=== PATIENT | male | born 1945 | race Caucasian/White ===

== ENCOUNTER 2017-11-27 07:10 | Outpatient (CLI) | payer OTHER ==
[~2017-11-27 07:10] MED LIST: ALDACTONE25 MG; ASA81 MG; ATORVASTATIN CA20 MG; CARVEDILOL12.5 MG; CIPRO500 MG PO; COZAAR100 MG; DIGOXIN0.125 MG/2; FENOFIBRATE150 MG; FLAGYL500MG PO; FUROSEMIDE20 MG; PLAVIX75 MG
== END 2017-11-27 07:14 | disposition home or self-care (01) ==
LOC: LAB 07:10
DX: D55.0 Anemia due to glucose-6-phosphate dehydrogenase [G6PD] deficiency (principal)

== ENCOUNTER → 2018-02-20 | Outpatient (CLI) | payer OTHER | END | disposition home or self-care (01) | LOC: TOM 07:45 | DX: C34.11 Malignant neoplasm of upper lobe, right bronchus or lung (principal); C78.2 Secondary malignant neoplasm of pleura; J91.0 Malignant pleural effusion | CPT/HCPCS: 71260; Q9965 ==

== ENCOUNTER 2018-07-25 08:37 | Outpatient (CLI) | payer OTHER | END 2018-07-25 10:32 | disposition home or self-care (01) | LOC: NUCLEAR 08:37 | DX: C34.11 Malignant neoplasm of upper lobe, right bronchus or lung (principal); C78.2 Secondary malignant neoplasm of pleura | CPT/HCPCS: 78815; A9552 ==

== ENCOUNTER 2018-11-10 07:29 | Outpatient (CLI) | payer OTHER | END 2018-11-10 07:39 | disposition home or self-care (01) | LOC: TOM 07:29 | DX: C18.7 Malignant neoplasm of sigmoid colon (principal); C34.11 Malignant neoplasm of upper lobe, right bronchus or lung | CPT/HCPCS: 74177; Q9965 ==

== ENCOUNTER 2018-11-26 08:48 | Outpatient (CLI) | payer OTHER | END 2018-11-26 08:55 | disposition home or self-care (01) | LOC: NUCLEAR 08:48 | DX: I20.1 Angina pectoris with documented spasm (principal) ==

== ENCOUNTER 2018-11-26 10:10 | Outpatient (CLI) | payer OTHER | END 2018-11-26 10:35 | disposition home or self-care (01) | LOC: RAD 10:10 | DX: C18.7 Malignant neoplasm of sigmoid colon (principal); R59.0 Localized enlarged lymph nodes; Z01.810 Encounter for preprocedural cardiovascular examination ==

== ENCOUNTER 2018-11-27 08:51 | Outpatient (CLI) | payer OTHER | END 2018-11-27 13:32 | disposition home or self-care (01) | LOC: LAB 08:51 | DX: C18.7 Malignant neoplasm of sigmoid colon (principal); R59.0 Localized enlarged lymph nodes ==

== ENCOUNTER 2019-05-21 09:04 | Outpatient (CLI) | payer OTHER | END 2019-05-21 09:18 | disposition home or self-care (01) | LOC: RAD 09:04 | DX: Z98.41 Cataract extraction status, right eye (principal); H25.011 Cortical age-related cataract, right eye ==

== ENCOUNTER → 2019-06-18 | Outpatient (CLI) | payer OTHER | END | disposition home or self-care (01) | LOC: RAD 13:08 | DX: J43.2 Centrilobular emphysema (principal); J30.1 Allergic rhinitis due to pollen; J91.8 Pleural effusion in other conditions classified elsewhere; Z87.891 Personal history of nicotine dependence ==

== ENCOUNTER 2019-07-02 08:08 | Outpatient (CLI) | payer OTHER | END 2019-07-02 08:14 | disposition home or self-care (01) | LOC: RAD 08:08 | DX: J43.2 Centrilobular emphysema (principal); J30.1 Allergic rhinitis due to pollen; J91.8 Pleural effusion in other conditions classified elsewhere; Z87.891 Personal history of nicotine dependence ==

== ENCOUNTER → 2019-10-22 | Outpatient (CLI) | payer OTHER | END | disposition home or self-care (01) | LOC: RAD 12:46 | DX: C34.11 Malignant neoplasm of upper lobe, right bronchus or lung (principal); C78.01 Secondary malignant neoplasm of right lung; C77.1 Secondary and unspecified malignant neoplasm of intrathoracic lymph nodes; J91.0 Malignant pleural effusion ==

== ENCOUNTER 2020-03-22 08:47 | Outpatient (CLI) | payer OTHER | END 2020-03-22 08:54 | disposition home or self-care (01) | LOC: NUCLEAR 08:47 | PROVIDERS: ATTEND Internal Medicine Hematology & Oncology | DX: C34.11 Malignant neoplasm of upper lobe, right bronchus or lung (principal); C78.01 Secondary malignant neoplasm of right lung; C77.1 Secondary and unspecified malignant neoplasm of intrathoracic lymph nodes | CPT/HCPCS: 78815; A9552 ==

== ENCOUNTER → 2020-06-17 | Outpatient (CLI) | payer OTHER | END | disposition home or self-care (01) | LOC: RAD 10:05 | PROVIDERS: ATTEND Internal Medicine Hematology & Oncology | DX: C34.11 Malignant neoplasm of upper lobe, right bronchus or lung (principal); C77.2 Secondary and unspecified malignant neoplasm of intra-abdominal lymph nodes; C78.01 Secondary malignant neoplasm of right lung; C78.7 Secondary malignant neoplasm of liver and intrahepatic bile duct ==

== ENCOUNTER 2020-10-04 08:31 | Outpatient (CLI) | payer OTHER | END 2020-10-04 08:41 | disposition home or self-care (01) | LOC: NUCLEAR 08:31 | PROVIDERS: ATTEND Internal Medicine Hematology & Oncology | DX: C34.11 Malignant neoplasm of upper lobe, right bronchus or lung (principal); C77.2 Secondary and unspecified malignant neoplasm of intra-abdominal lymph nodes; C78.7 Secondary malignant neoplasm of liver and intrahepatic bile duct | CPT/HCPCS: 78816; A9552 ==

== ENCOUNTER → 2020-12-01 | Outpatient (CLI) | payer OTHER | END | disposition home or self-care (01) | LOC: MRI 09:15 | PROVIDERS: ATTEND Internal Medicine Hematology & Oncology | DX: C79.51 Secondary malignant neoplasm of bone (principal) | CPT/HCPCS: 72146 ==

== ENCOUNTER 2021-01-31 12:54 | Outpatient (CLI) | payer OTHER | END 2021-01-31 13:05 | disposition home or self-care (01) | LOC: SONOGRAMA 12:54 → MAMO-SONO 13:15 | PROVIDERS: ATTEND Internal Medicine Hematology & Oncology | DX: N64.89 Other specified disorders of breast (principal) ==

== ENCOUNTER 2021-04-07 11:47 | Outpatient (CLI) | payer OTHER | END 2021-04-07 11:54 | disposition home or self-care (01) | LOC: RAD 11:47 | DX: M54.2 Cervicalgia (principal) ==

== ENCOUNTER 2021-04-19 08:43 | Outpatient (CLI) | payer OTHER | END 2021-04-19 08:45 | disposition home or self-care (01) | LOC: NUCLEAR 08:43 | PROVIDERS: ATTEND Internal Medicine Hematology & Oncology | DX: C34.11 Malignant neoplasm of upper lobe, right bronchus or lung (principal); C77.3 Secondary and unspecified malignant neoplasm of axilla and upper limb lymph nodes; C77.2 Secondary and unspecified malignant neoplasm of intra-abdominal lymph nodes; C78.7 Secondary malignant neoplasm of liver and intrahepatic bile duct | CPT/HCPCS: 78816; A9552 ==

== ENCOUNTER 2021-09-28 13:17 | Outpatient (CLI) | payer OTHER | END 2021-09-28 13:31 | disposition home or self-care (01) | LOC: RAD 13:17 | PROVIDERS: ATTEND General Practice | DX: S60.221A Contusion of right hand, initial encounter (principal) ==

== ENCOUNTER 2021-10-04 08:32 | Outpatient (CLI) | payer OTHER | END 2021-10-04 08:39 | disposition home or self-care (01) | LOC: SONOGRAMA 08:32 | PROVIDERS: ATTEND General Practice | DX: M75.111 Incomplete rotator cuff tear or rupture of right shoulder, not specified as traumatic (principal) ==

== ENCOUNTER 2021-11-01 10:21 | Outpatient (CLI) | payer OTHER | END 2021-11-01 10:25 | disposition home or self-care (01) | LOC: RAD 10:21 | PROVIDERS: ATTEND Physical Medicine & Rehabilitation | DX: M17.11 Unilateral primary osteoarthritis, right knee (principal) ==

== ENCOUNTER 2021-11-14 07:35 | Outpatient (CLI) | payer OTHER | END 2021-11-14 07:38 | disposition home or self-care (01) | LOC: NUCLEAR 07:35 | PROVIDERS: ATTEND Internal Medicine Hematology & Oncology | DX: C34.11 Malignant neoplasm of upper lobe, right bronchus or lung (principal); C77.1 Secondary and unspecified malignant neoplasm of intrathoracic lymph nodes; C77.2 Secondary and unspecified malignant neoplasm of intra-abdominal lymph nodes | CPT/HCPCS: 78815; A9552 ==

== ENCOUNTER 2022-04-17 07:25 | Outpatient (CLI) | payer OTHER | END 2022-04-17 07:27 | disposition home or self-care (01) | LOC: NUCLEAR 07:25 | PROVIDERS: ATTEND Internal Medicine Hematology & Oncology | DX: C34.11 Malignant neoplasm of upper lobe, right bronchus or lung (principal); C78.00 Secondary malignant neoplasm of unspecified lung | CPT/HCPCS: 78812; A9552 ==

== ENCOUNTER 2022-12-17 14:32 | Outpatient (CLI) | payer OTHER | END 2022-12-17 14:38 | disposition home or self-care (01) | LOC: SONOGRAMA 14:32 | PROVIDERS: ATTEND Internal Medicine Hematology & Oncology | DX: N63.10 Unspecified lump in the right breast, unspecified quadrant (principal) ==

== ENCOUNTER 2023-01-02 14:23 | Outpatient (CLI) | payer OTHER | END 2023-01-02 14:33 | disposition home or self-care (01) | LOC: MAMO-SONO 14:23 | PROVIDERS: ATTEND Surgery | DX: N60.11 Diffuse cystic mastopathy of right breast (principal); N60.12 Diffuse cystic mastopathy of left breast ==

== ENCOUNTER 2023-03-01 09:40 | Outpatient (CLI) | payer OTHER | END 2023-03-01 09:51 | disposition home or self-care (01) | LOC: RX STUDY 09:40 | PROVIDERS: ATTEND Internal Medicine Gastroenterology | DX: R13.19 Other dysphagia (principal); Z85.118 Personal history of other malignant neoplasm of bronchus and lung ==

== ENCOUNTER 2023-04-09 07:54 | Outpatient (CLI) | payer OTHER | END 2023-04-09 07:55 | disposition home or self-care (01) | LOC: NUCLEAR 07:54 | PROVIDERS: ATTEND Internal Medicine Hematology & Oncology | DX: C34.11 Malignant neoplasm of upper lobe, right bronchus or lung (principal); C78.01 Secondary malignant neoplasm of right lung; Z85.030 Personal history of malignant carcinoid tumor of large intestine | CPT/HCPCS: 78816; A9552 ==

== ENCOUNTER 2023-08-27 09:09 | Outpatient (CLI) | payer OTHER | END 2023-08-27 09:20 | disposition home or self-care (01) | LOC: TOM 09:09 | PROVIDERS: ATTEND Internal Medicine Hematology & Oncology | DX: C77.1 Secondary and unspecified malignant neoplasm of intrathoracic lymph nodes (principal); C78.00 Secondary malignant neoplasm of unspecified lung; Z92.21 Personal history of antineoplastic chemotherapy | CPT/HCPCS: 71260; Q9965 ==

== ENCOUNTER 2023-12-19 08:31 | Outpatient (CLI) | payer OTHER | END 2023-12-19 08:34 | disposition home or self-care (01) | LOC: NUCLEAR 08:31 | PROVIDERS: ATTEND Internal Medicine Hematology & Oncology | DX: C34.11 Malignant neoplasm of upper lobe, right bronchus or lung (principal); C77.1 Secondary and unspecified malignant neoplasm of intrathoracic lymph nodes; C77.2 Secondary and unspecified malignant neoplasm of intra-abdominal lymph nodes; C78.7 Secondary malignant neoplasm of liver and intrahepatic bile duct; C79.51 Secondary malignant neoplasm of bone | CPT/HCPCS: 78816; A9552 ==

== ENCOUNTER 2023-12-31 15:00 | Emergency (ER) | payer OTHER ==
[~2023-12-31] VITALS: Ht 177.8 cm; Wt 77.1 kg
[2023-12-31 17:31] LABS: HEMATOCRIT 39.1 % (39.0-48.0); HEMOGLOBIN 13.7 g/dL (13-16.00); MEAN CELL VOLUME 93.5 fL (80.0-100.00); MEAN CORPUSCULAR HEMOGLOBIN 32.7 pg (27.00-32.0); PLATELET COUNT 285 K/uL (150-450); RED BLOOD COUNT 4.18 M/uL (4.00-6.00); RED CELL DISTRIBUTION WIDTH 14.4 % (11.5-14.5)
[2023-12-31 17:57] LABS: INR 1.04; PARTIAL THROMBOPLASTIN TIME 29.3 SECONDS (22.0-34.0); PROTHROMBIN TIME 10.9 SECONDS (9.0-11.5)
[2023-12-31 18:02] LABS: CALCIUM 9.4 mg/dL (8.5-10.1); CREATININE SERUM 1.19 mg/dL (0.70-1.30); GFR 58.82; POTASSIUM 4.91 mEq/L (3.5-5.1)
[2023-12-31] MEDS ORDERED: LORazepam 2 MG/ML VIAL IM STA (18:04)
== END 2023-12-31 22:56 | disposition home or self-care (01) ==
LOC: ER 15:00
PROVIDERS: Emergency Medicine
DX: R42 Dizziness and giddiness (principal); Z20.822 Contact with and (suspected) exposure to COVID-19; I10 Essential (primary) hypertension; E03.8 Other specified hypothyroidism
CPT/HCPCS: 36415; 71045; 93005; 93041; 94760; 96372; 99283; J3490

== ENCOUNTER 2024-01-23 10:43 | Outpatient (CLI) | payer OTHER | END 2024-01-23 10:48 | disposition home or self-care (01) | LOC: RAD 10:43 | PROVIDERS: ATTEND Internal Medicine Pulmonary Disease | DX: J43.2 Centrilobular emphysema (principal); J30.1 Allergic rhinitis due to pollen; J91.8 Pleural effusion in other conditions classified elsewhere; Z87.891 Personal history of nicotine dependence; R06.02 Shortness of breath ==

== ENCOUNTER 2024-04-22 10:34 | Outpatient (CLI) | payer OTHER ==
[~2024-04-22 10:34] MED LIST changes: +ALDACTAZIDE 251 EACH PO; +CARVEDILOL25 MG PO; +CLOPIDOGREL BIS75 MG PO; +COZAAR100 MG PO; +DIGOX125 MCG PO; +FENOFIBRATE160 MG PO; +HORIZANT300 MG PO; +HYOSCYAMINE0.125 M1 SL; +LASIX40 MG PO; +LIPITOR20 MG PO; +OXYC1TAB9 PO; +RAYOS2 MG PO; +UROXATRAL10 MG PO
== END 2024-04-22 10:36 | disposition home or self-care (01) ==
LOC: RAD 10:34
PROVIDERS: ATTEND Internal Medicine Hematology & Oncology
DX: R07.89 Other chest pain (principal)

== ENCOUNTER 2024-06-11 16:42 | Emergency (ER) | payer OTHER ==
[~2024-06-11] VITALS: Ht 172.7 cm; Wt 76.2 kg
[2024-06-11] MEDS ORDERED: FUROsemide 20 MG/2 ML VIAL ONE (18:28)
[2024-06-11] MEDS ORDERED: NITROGLYCERIN IN 5 % DEXTROSE 50 MG/250 ML BOTTLE IV ONE (18:28)
[2024-06-11] MEDS ORDERED: LORazepam 1 MG TABLET PO ONE (18:30)
[2024-06-11] MEDS ORDERED: NITROGLYCERIN IN 5 % DEXTROSE 250 ML IV SCH (18:30)
[2024-06-11] MEDS ORDERED: FUROsemide 20 MG/2 ML VIAL IV ONE (18:30)
[2024-06-11 19:05] LABS: HEMATOCRIT 37.5 % (39.0-48.0); HEMOGLOBIN 12.7 g/dL (13-16.00); MEAN CELL VOLUME 91.9 fL (80.0-100.00); MEAN CORPUSCULAR HEMOGLOBIN 31.2 pg (27.00-32.0); MEAN CORPUSCULAR HGB CONC 33.9 g/dl (32.0-36.0); PLATELET COUNT 286 K/uL (150-450); RED BLOOD COUNT 4.08 M/uL (4.00-6.00); RED CELL DISTRIBUTION WIDTH 15.9 % (11.5-14.5)
[2024-06-11 19:22] LABS: ALBUMIN 3.5 gm/dL (3.4-5.0); BILIRUBIN TOTAL 0.36 mg/dL (0.3-1.2); CALCIUM 9.3 mg/dL (8.5-10.1); CREATININE SERUM 1.1 mg/dL (0.70-1.30); GFR 64.25; GLOBULINA 3.5 G/DL (2.4-3.5); POTASSIUM 4.42 mEq/L (3.5-5.1)
[2024-06-11 19:36] LABS: PH,URINE 6.5 (5.0-8.0); URINE APPEARANCE Clear; URINE BILIRRUBIN Negative (NEGATIVE); URINE BLOOD Negative; URINE COLOR Yellow; URINE GLUCOSE Negative (NEGATIVE); URINE KETONE Negative (NEGATIVE); URINE LEUKOCYTE Negative; URINE NITRATE Negative; URINE PROTEIN Negative (NEGATIVE); URINE UROBILINOGEN 0.2 E.U./dl
[2024-06-11 19:40] LABS: URINE BACTERIA 16.3 uL (0.0-1933); URINE RBC 11.7 uL (0.0-20.8)
[2024-06-11 19:49] LABS: URINE EPITHELIAL CELLS 0.7 uL (0.0-38.8); URINE WBC 1.2 uL (0.0-23.2)
== END 2024-06-11 22:30 | disposition home or self-care (01) ==
LOC: ER 16:42
PROVIDERS: General Practice
DX: R07.9 Chest pain, unspecified (principal); I16.9 Hypertensive crisis, unspecified; I10 Essential (primary) hypertension; Z20.822 Contact with and (suspected) exposure to COVID-19
CPT/HCPCS: 36415; 71045; 93005; 93041; 96365; 96366; 99283; J1940; J3490

== ENCOUNTER 2024-07-21 14:09 | Outpatient (CLI) | payer OTHER | END 2024-07-21 14:15 | disposition home or self-care (01) | LOC: RAD 14:09 | PROVIDERS: ATTEND Internal Medicine Hematology & Oncology | DX: C34.11 Malignant neoplasm of upper lobe, right bronchus or lung (principal) ==

== ENCOUNTER 2024-07-23 11:47 | Outpatient (CLI) | payer OTHER | END 2024-07-23 11:53 | disposition home or self-care (01) | LOC: RAD 11:47 | PROVIDERS: ATTEND Physical Medicine & Rehabilitation | DX: M54.2 Cervicalgia (principal) ==

== ENCOUNTER 2024-07-29 10:24 | Emergency (ER) | payer OTHER ==
[~2024-07-29] VITALS: Ht 172.7 cm; Wt 77.1 kg
[2024-07-29] MEDS ORDERED: GRALISE600 MG PO (10:46)
[2024-07-29] MEDS ORDERED: ATIVAN0.5 M1 PO (10:47)
[2024-07-29] MEDS ORDERED: PROZAC10 MG PO (10:47)
[2024-07-29] MEDS ORDERED: 0.9 % SODIUM CHLORIDE 1,000 ML IV STA (11:59)
[2024-07-29 12:38] LABS: ABG PH 7.435 (7.35-7.45); ABG PO2 95.8 mmHg (80-100); ABG pCO2 33.6 mmHg (35-45); BASE EXCESS -1.4 mmol/l; BICARBONATE 22.1 mmol/l (23-25); SaO2 97.6 %; Tco2 23.1 mmol/l
[2024-07-29 12:51] LABS: allen test SATISFACTORY; o2 21 %; puncture site RADIAL RIGHT
[2024-07-29 12:56] LABS: HEMOGLOBIN 12.1 g/dL (13-16.00); MEAN CELL VOLUME 93.2 fL (80.0-100.00); MEAN CORPUSCULAR HEMOGLOBIN 31.4 pg (27.00-32.0); MEAN CORPUSCULAR HGB CONC 33.7 g/dl (32.0-36.0); PLATELET COUNT 235 K/uL (150-450); RED BLOOD COUNT 3.86 M/uL (4.00-6.00); RED CELL DISTRIBUTION WIDTH 16.2 % (11.5-14.5)
[2024-07-29 13:17] LABS: INR 1.02; PROTHROMBIN TIME 11.1 SECONDS (9.0-11.5)
[2024-07-29 13:19] LABS: PARTIAL THROMBOPLASTIN TIME < 20.0 SECONDS (22.0-34.0)
[2024-07-29 13:31] LABS: ALBUMIN 3.4 gm/dL (3.4-5.0); BILIRUBIN TOTAL 0.38 mg/dL (0.3-1.2); CALCIUM 9.3 mg/dL (8.5-10.1); CREATININE SERUM 1.26 mg/dL (0.70-1.30); GFR 54.93; GLOBULINA 3.7 G/DL (2.4-3.5); POTASSIUM 5.11 mEq/L (3.5-5.1); TOTAL PROTEIN 7.1 gm/dL (6.4-8.2)
[2024-07-29 14:30] LABS: PH,URINE 6.5 (5.0-8.0); URINE APPEARANCE Clear; URINE BILIRRUBIN Negative (NEGATIVE); URINE BLOOD Negative; URINE COLOR Yellow; URINE GLUCOSE Negative (NEGATIVE); URINE KETONE Negative (NEGATIVE); URINE LEUKOCYTE Negative; URINE NITRATE Negative; URINE PROTEIN Negative (NEGATIVE); URINE UROBILINOGEN 0.2 E.U./dl
[2024-07-29 14:34] LABS: URINE EPITHELIAL CELLS 3.6 uL (0.0-38.8); URINE RBC 5.4 uL (0.0-20.8)
[2024-07-29 14:38] LABS: URINE CAST 0.15 uL (0.0-1.40); URINE WBC 1.6 uL (0.0-23.2)
== END 2024-07-29 15:23 | disposition home or self-care (01) ==
LOC: ER 10:24
PROVIDERS: General Practice
DX: R07.89 Other chest pain (principal); J44.9 Chronic obstructive pulmonary disease, unspecified; F32.89 Other specified depressive episodes; Z86.2 Personal history of diseases of the blood and blood-forming organs and certain disorders involving the immune mechanism; I25.2 Old myocardial infarction; E78.00 Pure hypercholesterolemia, unspecified; I10 Essential (primary) hypertension; F41.8 Other specified anxiety disorders; C78.02 Secondary malignant neoplasm of left lung; F17.210 Nicotine dependence, cigarettes, uncomplicated
CPT/HCPCS: 36415; 71250; 82803; 96365; 99284; J7030

== ENCOUNTER 2024-08-15 12:45 | Inpatient (IN) | payer OTHER ==
[~2024-08-15] VITALS: Ht 172.7 cm; Wt 71.7 kg
[~2024-08-15 12:45] MED LIST changes: +ATIVAN0.5 M1 PO; +GRALISE600 MG PO; +PROZAC10 MG PO
--- NOTE | 2024-08-15 13:21 | NUR ---
SE RECIBE MASCULINO ALERTA Y ORIENTADO X3 EN AMBULANCIA QUIEN REFIERE DEBILIDAD Y MAREOS HACE VARIOS HALL. PACIENTE CON CA PULMON DE DR JEFF HERNANDEZ. SE MIDEN S/V Y SE REALIZA EKG EL CUAL ES EVALUADO POR DRA MENG. SE UBICA A PACIENTE.
[2024-08-15] MEDS ORDERED: 0.9 % SODIUM CHLORIDE 500 ML IV ONE (14:00)
[2024-08-15] MEDS ORDERED: MULTIVIT INFUSN,ADULT 4,VIT K 10 ML VIAL IV ONE (14:00)
--- NOTE | 2024-08-15 14:12 | NUR ---
RN EVANS EDUCA A PTE SOBRE TX A RECIBIR EN EL AREA EL MISMO REFIERE ENTENDER. SE REALIZAN MUESTRAS BAJO MEDIDAS ASEPTICAS Y SE ENVIAN. SE CAHYA EL MISMO EN ESPERA DE RESULTADOS Y DE PLACA PENDIENTE.
[2024-08-15 14:31] LABS: HEMATOCRIT 40.1 % (39.0-48.0); HEMOGLOBIN 13.5 g/dL (13-16.00); MEAN CELL VOLUME 90.6 fL (80.0-100.00); MEAN CORPUSCULAR HEMOGLOBIN 30.5 pg (27.00-32.0); MEAN CORPUSCULAR HGB CONC 33.6 g/dl (32.0-36.0); PLATELET COUNT 288 K/uL (150-450); RED BLOOD COUNT 4.42 M/uL (4.00-6.00); RED CELL DISTRIBUTION WIDTH 16.2 % (11.5-14.5)
[2024-08-15 14:56] LABS: BILIRUBIN TOTAL 0.47 mg/dL (0.3-1.2); CALCIUM 8.3 mg/dL (8.5-10.1); CREATININE SERUM 1.63 mg/dL (0.70-1.30); GFR 40.81; GLOBULINA 3.4 G/DL (2.4-3.5); POTASSIUM 5.68 mEq/L (3.5-5.1); TOTAL PROTEIN 6.4 gm/dL (6.4-8.2)
[2024-08-15 16:49] LABS: URINE APPEARANCE Clear; URINE BILIRRUBIN Negative (NEGATIVE); URINE BLOOD Negative; URINE COLOR Yellow; URINE GLUCOSE Negative (NEGATIVE); URINE KETONE Trace (NEGATIVE); URINE LEUKOCYTE Trace; URINE NITRATE Negative; URINE PROTEIN Negative (NEGATIVE); URINE UROBILINOGEN 0.2 E.U./dl
[2024-08-15 16:52] LABS: URINE BACTERIA 31.4 uL (0.0-1933); URINE EPITHELIAL CELLS 7.8 uL (0.0-38.8); URINE RBC 4.8 uL (0.0-20.8); URINE WBC 10.1 uL (0.0-23.2)
[2024-08-15 17:03] LABS: URINE CAST 0.45 uL (0.0-1.40)
[2024-08-15] MEDS ORDERED: CEFTRIAXONE SODIUM 2,000 MG VIAL IV ONE (17:45)
[2024-08-15] MEDS ORDERED: FAMOTIDINE/PF 20 MG in 0.9 % SODIUM CHLORIDE 100 ML IV SCH (18:46)
[2024-08-15] MEDS ORDERED: CEFTRIAXONE SODIUM 2,000 MG in 0.9 % SODIUM CHLORIDE 100 ML IV SCH (18:46)
[2024-08-15] MEDS ORDERED: ACETAMINOPHEN 325 MG TABLET PO PRN (19:00)
[2024-08-15] MEDS ORDERED: 0.9 % SODIUM CHLORIDE 1,000 ML IV SCH (19:00)
[2024-08-15] MEDS ORDERED: LOSARTAN POTASSIUM 100 MG TABLET PO SCH (19:07)
[2024-08-15] MEDS ORDERED: VITAMIN B COMPLEX/LYSINE 1 ML ML PO SCH (19:07)
[2024-08-15] MEDS ORDERED: CLOPIDOGREL BISULFATE 75 MG TABLET PO SCH (19:07)
[2024-08-15] MEDS ORDERED: CARVEDILOL 25 MG TABLET PO SCH (19:07)
[2024-08-15] MEDS ORDERED: SPIRONOLACTONE 25 MG TABLET PO SCH (19:08)
[2024-08-15] MEDS ORDERED: FUROsemide 20 MG TABLET PO SCH (19:08)
[2024-08-15] MEDS ORDERED: ASPIRIN 81 MG TABLET.EC PO SCH (19:08)
[2024-08-15 20:48] LABS: ABG PH 7.403 (7.35-7.45); ABG PO2 84.3 mmHg (80-100); ABG pCO2 34.6 mmHg (35-45); BASE EXCESS -2.8 mmol/l; BICARBONATE 21.1 mmol/l (23-25); SaO2 96.2 %; Tco2 22.2 mmol/l
[2024-08-15 20:57] LABS: allen test SATISFACTORY; o2 21 %; puncture site RADIAL RIGHT
[2024-08-15 21:03] LABS: INR 1.05; PARTIAL THROMBOPLASTIN TIME 24.4 SECONDS (22.0-34.0); PROTHROMBIN TIME 11.4 SECONDS (9.0-11.5)
[2024-08-15 21:05] LABS: CALCIUM 8.4 mg/dL (8.5-10.1); CREATININE SERUM 1.48 mg/dL (0.70-1.30); GFR 45.62; PHOSPHOROUS 3.6 mg/dL (2.5-4.9); POTASSIUM 5.14 mEq/L (3.5-5.1)
[2024-08-15 21:08] LABS: CKMB 2.2 NG/ML (0.5-3.6)
[2024-08-15 21:14] LABS: C-REACTIVE PROTEIN < 0.29 MG/DL (0.00-0.29)
[2024-08-15 23:27] VITALS: BP 109/69; O2SAT 98
[2024-08-16] MEDS ORDERED: ACETAMINOPHEN 500 MG GEL..CAP PO PRN (08:00)
[2024-08-16 10:16] VITALS: BP 117/70; O2SAT 97
[2024-08-16] MEDS ORDERED: ALPRAzolam 0.25 MG TABLET PO PRN (15:30)
[2024-08-16 20:39] VITALS: BP 150/89
[2024-08-16] MEDS ORDERED: TAMSULOSIN HCL 0.4 MG CAP PO SCH (21:00)
[2024-08-16] MEDS ORDERED: CLONAZEPAM 1 MG TABLET PO SCH (21:00)
[2024-08-17 00:55] VITALS: BP 78/45
[2024-08-17 01:59] VITALS: BP 80/50
[2024-08-17 08:48] VITALS: BP 180/70; BP 95/60; O2SAT 97; O2SAT 98
[2024-08-17 13:49] LABS: HEMATOCRIT 39.2 % (39.0-48.0); MEAN CELL VOLUME 93.9 fL (80.0-100.00); MEAN CORPUSCULAR HEMOGLOBIN 31.1 pg (27.00-32.0); MEAN CORPUSCULAR HGB CONC 33.1 g/dl (32.0-36.0); PLATELET COUNT 237 K/uL (150-450); RED BLOOD COUNT 4.17 M/uL (4.00-6.00); RED CELL DISTRIBUTION WIDTH 15.7 % (11.5-14.5)
[2024-08-17 14:36] LABS: ALBUMIN 2.7 gm/dL (3.4-5.0); BILIRUBIN TOTAL 0.52 mg/dL (0.3-1.2); CALCIUM 8.2 mg/dL (8.5-10.1); CREATININE SERUM 1.33 mg/dL (0.70-1.30); GFR 51.6; GLOBULINA 3.1 G/DL (2.4-3.5); POTASSIUM 5.79 mEq/L (3.5-5.1); TOTAL PROTEIN 5.8 gm/dL (6.4-8.2)
[2024-08-17] MEDS ORDERED: SODIUM POLYSTYRENE SULFONATE 15 G/4 TSP TSP PO SCH (17:00)
[2024-08-17] MEDS ORDERED: ORPHENADRINE CITRATE 100 MG TABLET PO SCH (18:50)
[2024-08-17] MEDS ORDERED: ALBUTEROL SULFATE 3 ML/2.5 MG AMPUL.NEB IH SCH (18:50)
[2024-08-17 19:52] VITALS: BP 115/70; O2SAT 98
[2024-08-18 01:15] VITALS: BP 108/63
[2024-08-18] MEDS ORDERED: FAMOtidine 20 MG TABLET PO SCH (09:00)
[2024-08-18 09:50] VITALS: BP 112/68; O2SAT 96
[2024-08-18 19:34] VITALS: BP 120/77; O2SAT 97
[2024-08-19 02:25] VITALS: BP 97/65
[2024-08-19 06:44] LABS: CALCIUM 7.9 mg/dL (8.5-10.1); CREATININE SERUM 1.07 mg/dL (0.70-1.30); GFR 66.33; POTASSIUM 4.04 mEq/L (3.5-5.1)
[2024-08-19 08:56] VITALS: BP 119/74; O2SAT 99
[2024-08-19 17:31] VITALS: BP 138/81
[2024-08-20 01:52] VITALS: BP 115/60
[2024-08-20 09:17] VITALS: BP 109/69; O2SAT 97
[2024-08-20] MEDS ORDERED: AMINO ACIDS/PROTEIN HYDROLYS 30 ML BLIST.PACK PO SCH (10:38)
[2024-08-20] MEDS ORDERED: NORFLEX100MG PO (11:52)
[2024-08-20] MEDS ORDERED: TAMS0.4C PO (11:53)
[2024-08-20] MEDS ORDERED: CLOPIDOGREL BIS75 MG PO (11:53)
[2024-08-20] MEDS ORDERED: ST. JOSEPH ASPI81 M2 PO (11:53)
[2024-08-20] MEDS ORDERED: CLONAZEPAM1 MG PO (11:54)
[2024-08-20] MEDS ORDERED: ALPRAZOLAM0.25 MG PO (11:55)
[2024-08-20] MEDS ORDERED: CIPRO500 MG PO (11:57)
== END 2024-08-20 12:26 | disposition home or self-care (01) | DRG 641 ==
LOC: ER 12:45 → MEDJ 19:15
PROVIDERS: General Practice; Nurse Practitioner Family; ADMIT Internal Medicine Hematology & Oncology; ATTEND Internal Medicine Hematology & Oncology
PROC: 3E0F7GC Introduction of Other Therapeutic Substance into Respiratory Tract, Via Natural or Artificial Opening (ICD-10-PCS; principal; 2024-08-17)
PROC: BW4GZZZ Ultrasonography of Pelvic Region (ICD-10-PCS; 2024-08-17)
PROC: BT4JZZZ Ultrasonography of Kidneys and Bladder (ICD-10-PCS; 2024-08-17)
DX: E86.0 Dehydration (principal); C34.11 Malignant neoplasm of upper lobe, right bronchus or lung; N17.8 Other acute kidney failure; R65.10 Systemic inflammatory response syndrome (SIRS) of non-infectious origin without acute organ dysfunction; N39.0 Urinary tract infection, site not specified; R78.81 Bacteremia; D72.828 Other elevated white blood cell count; J44.9 Chronic obstructive pulmonary disease, unspecified; E87.5 Hyperkalemia; I10 Essential (primary) hypertension; E78.49 Other hyperlipidemia

== ENCOUNTER 2024-09-01 11:34 | Emergency (ER) | payer OTHER ==
[~2024-09-01] VITALS: Ht 172.7 cm; Wt 71.7 kg
[~2024-09-01 11:34] MED LIST changes: +ALPRAZOLAM0.25 MG PO; +CLONAZEPAM1 MG PO; +NORFLEX100MG PO; +ST. JOSEPH ASPI81 M2 PO; +TAMS0.4C PO
[2024-09-01] MEDS ORDERED: 0.9 % SODIUM CHLORIDE 1,000 ML IV STA (12:53)
[2024-09-01 13:41] LABS: HEMATOCRIT 39.9 % (39.0-48.0); HEMOGLOBIN 13.7 g/dL (13-16.00); MEAN CELL VOLUME 90.9 fL (80.0-100.00); MEAN CORPUSCULAR HEMOGLOBIN 31.2 pg (27.00-32.0); MEAN CORPUSCULAR HGB CONC 34.3 g/dl (32.0-36.0); PLATELET COUNT 381 K/uL (150-450); RED BLOOD COUNT 4.39 M/uL (4.00-6.00); RED CELL DISTRIBUTION WIDTH 16.8 % (11.5-14.5)
[2024-09-01 14:01] LABS: ALBUMIN 3.4 gm/dL (3.4-5.0); BILIRUBIN TOTAL 0.49 mg/dL (0.3-1.2); BILIRUBIN,CONJUGATED 0.15 mg/dL (0.0-0.2); BILIRUBIN,UNCONJUGATED 0.34 mg/dL (0.0-0.6); CREATININE SERUM 1.12 mg/dL (0.70-1.30); GFR 62.92; POTASSIUM 4.68 mEq/L (3.5-5.1); TOTAL PROTEIN 6.9 gm/dL (6.4-8.2)
[2024-09-01 14:18] LABS: PH,URINE 6.5 (5.0-8.0); URINE APPEARANCE Clear; URINE BILIRRUBIN Negative (NEGATIVE); URINE BLOOD Negative; URINE COLOR Yellow; URINE GLUCOSE Negative (NEGATIVE); URINE KETONE Negative (NEGATIVE); URINE LEUKOCYTE Negative; URINE NITRATE Negative; URINE PROTEIN Trace (NEGATIVE); URINE UROBILINOGEN 0.2 E.U./dl
[2024-09-01 14:20] LABS: URINE BACTERIA 7.5 uL (0.0-1933); URINE EPITHELIAL CELLS 2.6 uL (0.0-38.8); URINE RBC 10.5 uL (0.0-20.8); URINE WBC 4.3 uL (0.0-23.2)
== END 2024-09-01 19:07 | disposition home or self-care (01) ==
LOC: ER
PROVIDERS: General Practice
DX: R53.1 Weakness (principal); C34.90 Malignant neoplasm of unspecified part of unspecified bronchus or lung; J02.9 Acute pharyngitis, unspecified
CPT/HCPCS: 36415; 93005; 96365; 96366; 99283; J7030

== ENCOUNTER 2024-12-14 10:02 | Outpatient (CLI) | payer OTHER | END 2024-12-14 10:05 | disposition home or self-care (01) | LOC: RAD 10:02 | PROVIDERS: ATTEND Internal Medicine Cardiovascular Disease | DX: I10 Essential (primary) hypertension (principal) ==

== ENCOUNTER 2025-01-14 11:13 | Inpatient (IN) | payer OTHER ==
[~2025-01-14] VITALS: Ht 165.1 cm; Wt 77.1 kg
[2025-01-14] MEDS ORDERED: 0.9 % SODIUM CHLORIDE 1,000 ML IV STA (11:54)
[2025-01-14 12:42] LABS: PARTIAL THROMBOPLASTIN TIME 28.8 SECONDS (22.0-34.0); PROTHROMBIN TIME 10.9 SECONDS (9.0-11.5)
[2025-01-14 12:45] LABS: HEMATOCRIT 34.1 % (39.0-48.0); HEMOGLOBIN 11.2 g/dL (13-16.00); MEAN CORPUSCULAR HEMOGLOBIN 28.8 pg (27.00-32.0); MEAN CORPUSCULAR HGB CONC 32.8 g/dl (32.0-36.0); RED BLOOD COUNT 3.87 M/uL (4.00-6.00); RED CELL DISTRIBUTION WIDTH 19.7 % (11.5-14.5)
[2025-01-14 12:49] LABS: PLATELET COUNT 147 K/uL (150-450)
[2025-01-14 12:51] LABS: ALBUMIN 2.4 gm/dL (3.4-5.0); BILIRUBIN TOTAL 0.31 mg/dL (0.3-1.2); CALCIUM 8.3 mg/dL (8.5-10.1); CREATININE SERUM 0.91 mg/dL (0.70-1.30); GFR 79.96; GLOBULINA 3.4 G/DL (2.4-3.5); POTASSIUM 4.27 mEq/L (3.5-5.1); TOTAL PROTEIN 5.8 gm/dL (6.4-8.2)
[2025-01-14 14:14] LABS: ABG PH 7.422 (7.35-7.45); ABG PO2 75.1 mmHg (80-100); ABG pCO2 38.5 mmHg (35-45); BASE EXCESS 0.3 mmol/l; BICARBONATE 24.5 mmol/l (23-25); SaO2 95.2 %; Tco2 25.7 mmol/l; allen test SATISFACTORY; o2 28 %; puncture site RADIAL LEFT
[2025-01-14 16:48] LABS: PH,URINE 5.5 (5.0-8.0); URINE APPEARANCE Clear; URINE BILIRRUBIN Negative (NEGATIVE); URINE BLOOD Negative; URINE COLOR Yellow; URINE GLUCOSE Negative (NEGATIVE); URINE KETONE Negative (NEGATIVE); URINE LEUKOCYTE Negative; URINE NITRATE Negative; URINE PROTEIN 30 (NEGATIVE); URINE UROBILINOGEN 0.2 E.U./dl
[2025-01-14 16:53] LABS: URINE BACTERIA 18.3 uL (0.0-1933); URINE EPITHELIAL CELLS 6.6 uL (0.0-38.8); URINE RBC 5.8 uL (0.0-20.8); URINE WBC 3.4 uL (0.0-23.2)
[2025-01-14] MEDS ORDERED: IPRATROPIUM BROMIDE 0.5 MG/2.5 ML AMPUL.NEB IH SCH (17:56)
[2025-01-14] MEDS ORDERED: LEVALBUTEROL HCL 1.25 MG/3 ML SOLUTION IH SCH (17:56)
[2025-01-14] MEDS ORDERED: FAMOTIDINE/PF 20 MG in 0.9 % SODIUM CHLORIDE 8 ML IV PUSH SCH (17:58)
[2025-01-14] MEDS ORDERED: AZITHROMYCIN 500 MG in DEXTROSE 5 % IN WATER 250 ML IV SCH (17:58)
[2025-01-14] MEDS ORDERED: 0.9 % SODIUM CHLORIDE 1,000 ML IV SCH (18:00)
[2025-01-14] MEDS ORDERED: METHYLPREDNISOLONE SOD SUCC 125 MG VIAL IV ONE (18:00)
[2025-01-14] MEDS ORDERED: ACETAMINOPHEN 500 MG GEL..CAP PO PRN (18:00)
[2025-01-14] MEDS ORDERED: GUAIFEN/DEXTROMETHORPHAN/PE 10 ML BLIST.PACK PO SCH (18:01)
[2025-01-14] MEDS ORDERED: ENOXAPARIN SODIUM 40 MG/0.4 ML SYRINGE SUBCUTANEO SCH (18:01)
[2025-01-14] MEDS ORDERED: AZITHROMYCIN 500 MG VIAL IV SCH (18:19)
[2025-01-14 19:00] VITALS: BP 186/114; O2SAT 82
[2025-01-14] MEDS ORDERED: NITROGLYCERIN IN 5 % DEXTROSE 50 MG/250 ML BOTTLE IV ONE (19:11)
[2025-01-14] MEDS ORDERED: NITROGLYCERIN IN 5 % DEXTROSE 250 ML IV SCH (19:13)
[2025-01-14] MEDS ORDERED: FUROsemide 40 MG/4 ML VIAL IV NR (19:15)
[2025-01-14] MEDS ORDERED: MORPHINE SULFATE 2 MG/ML CARTRIDGE IV NR (19:15)
[2025-01-14] MEDS ORDERED: FUROsemide 40 MG/4 ML VIAL ONE (19:16)
[2025-01-14 20:00] VITALS: BP 178/85; O2SAT 98
[2025-01-14] MEDS ORDERED: CEFEPIME HCL 2,000 MG in 0.9 % SODIUM CHLORIDE 100 ML IV SCH (20:06)
[2025-01-14 21:00] VITALS: BP 98/79; O2SAT 97
[2025-01-14] MEDS ORDERED: BUDESONIDE 0.5 MG/2 ML AMPUL.NEB IH SCH (21:00)
[2025-01-14 21:07] LABS: ABG PO2 106.9 mmHg (80-100); BASE EXCESS -5.7 mmol/l; BICARBONATE 26.2 mmol/l (23-25); Tco2 28.8 mmol/l
[2025-01-14 21:08] LABS: ABG PH 7.106 (7.35-7.45); ABG pCO2 85.3 mmHg (35-45); allen test SATISFACTORY; o2 100 %; puncture site RADIAL LEFT
[2025-01-14 22:00] VITALS: BP 117/79; O2SAT 100
[2025-01-14 23:00] LABS: ABG PH 7.302 (7.35-7.45); ABG PO2 212.8 mmHg (80-100); ABG pCO2 49.1 mmHg (35-45); BASE EXCESS -3.1 mmol/l; BICARBONATE 23.7 mmol/l (23-25); SaO2 99.6 %; Tco2 25.2 mmol/l; allen test SATISFACTORY; puncture site RADIAL LEFT
[2025-01-14 23:01] LABS: o2 100 %
[2025-01-15] VITALS (18 sets, daily range): BP systolic 130–157; BP diastolic 76–93; O2SAT 95–99
[2025-01-15] MEDS ORDERED: FUROsemide 40 MG/4 ML VIAL IV SCH (01:00)
[2025-01-15] MEDS ORDERED: FUROsemide 20 MG/2 ML VIAL IV SCH (02:00)
[2025-01-15] MEDS ORDERED: AZITHROMYCIN 500 MG VIAL IV ONE (08:32)
[2025-01-15] MEDS ORDERED: LOSARTAN POTASSIUM 100 MG TABLET PO SCH (09:00)
[2025-01-15] MEDS ORDERED: GABAPENTIN 300 MG CAPSULE PO SCH (09:00)
[2025-01-15] MEDS ORDERED: ENOXAPARIN SODIUM 40 MG/0.4 ML SYRINGE SUBCUTANEO SCH (09:00)
[2025-01-15] MEDS ORDERED: ATORVASTATIN CALCIUM 20 MG TABLET PO SCH (09:00)
[2025-01-15] MEDS ORDERED: TAMSULOSIN HCL 0.4 MG CAP PO SCH (09:00)
[2025-01-15] MEDS ORDERED: Duloxetine HCl 30 MG CAPSULE.DR PO SCH (09:00)
[2025-01-15 09:32] LABS: HEMATOCRIT 35.9 % (39.0-48.0); HEMOGLOBIN 11.9 g/dL (13-16.00); MEAN CELL VOLUME 87.4 fL (80.0-100.00); MEAN CORPUSCULAR HEMOGLOBIN 28.9 pg (27.00-32.0); MEAN CORPUSCULAR HGB CONC 33.1 g/dl (32.0-36.0); PLATELET COUNT 150 K/uL (150-450); RED BLOOD COUNT 4.11 M/uL (4.00-6.00); RED CELL DISTRIBUTION WIDTH 19.2 % (11.5-14.5)
[2025-01-15 10:21] LABS: ABG PH 7.401 (7.35-7.45); ABG PO2 108.3 mmHg (80-100); ABG pCO2 40.4 mmHg (35-45); BASE EXCESS -0.2 mmol/l; BICARBONATE 24.5 mmol/l (23-25); SaO2 98.2 %; Tco2 25.7 mmol/l
[2025-01-15 10:22] LABS: allen test SATISFACTORY; o2 50 %; puncture site RADIAL RIGHT
[2025-01-16] VITALS (7 sets, daily range): BP systolic 127–147; BP diastolic 67–84; O2SAT 90–99
[2025-01-16] MEDS ORDERED: FUROsemide 20 MG/2 ML VIAL IV SCH (05:00)
[2025-01-16 07:20] LABS: HEMATOCRIT 31.1 % (39.0-48.0); HEMOGLOBIN 10.6 g/dL (13-16.00); MEAN CELL VOLUME 86.7 fL (80.0-100.00); MEAN CORPUSCULAR HEMOGLOBIN 29.4 pg (27.00-32.0); MEAN CORPUSCULAR HGB CONC 33.9 g/dl (32.0-36.0); PLATELET COUNT 162 K/uL (150-450); RED BLOOD COUNT 3.59 M/uL (4.00-6.00); RED CELL DISTRIBUTION WIDTH 19.6 % (11.5-14.5)
[2025-01-16] MEDS ORDERED: AZITHROMYCIN 500 MG VIAL IV ONE (07:57)
[2025-01-16 08:12] LABS: ALBUMIN 2.5 gm/dL (3.4-5.0); BILIRUBIN TOTAL 0.5 mg/dL (0.3-1.2); CALCIUM 7.9 mg/dL (8.5-10.1); CREATININE SERUM 1.01 mg/dL (0.70-1.30); GFR 70.9; GLOBULINA 2.9 G/DL (2.4-3.5); MAGNESIUM 1.7 mg/dL (1.8-2.4); POTASSIUM 4.14 mEq/L (3.5-5.1); TOTAL PROTEIN 5.4 gm/dL (6.4-8.2)
[2025-01-16] MEDS ORDERED: MAGNESIUM SULFATE/D5W 100 ML IV NR (13:00)
[2025-01-17] VITALS (7 sets, daily range): BP systolic 128–166; BP diastolic 75–98; O2SAT 90–99
[2025-01-17] MEDS ORDERED: NIFEDIPINE 30 MG TAB.SA.OSM PO NR (16:00)
[2025-01-18] VITALS (9 sets, daily range): BP systolic 97–170; BP diastolic 66–94; O2SAT 90–98
[2025-01-18 07:19] LABS: ALBUMIN 2.7 gm/dL (3.4-5.0); BILIRUBIN TOTAL 0.8 mg/dL (0.3-1.2); CALCIUM 8.6 mg/dL (8.5-10.1); CREATININE SERUM 0.86 mg/dL (0.70-1.30); GFR 85.35; GLOBULINA 3.1 G/DL (2.4-3.5); MAGNESIUM 1.9 mg/dL (1.8-2.4); POTASSIUM 3.49 mEq/L (3.5-5.1); TOTAL PROTEIN 5.8 gm/dL (6.4-8.2)
[2025-01-18 08:40] LABS: HEMATOCRIT 38.3 % (39.0-48.0); HEMOGLOBIN 12.7 g/dL (13-16.00); MEAN CELL VOLUME 87.3 fL (80.0-100.00); MEAN CORPUSCULAR HGB CONC 33.2 g/dl (32.0-36.0); PLATELET COUNT 233 K/uL (150-450); RED BLOOD COUNT 4.39 M/uL (4.00-6.00); RED CELL DISTRIBUTION WIDTH 19.6 % (11.5-14.5)
[2025-01-18] MEDS ORDERED: NIFEDIPINE 30 MG TAB.SA.OSM PO SCH ×2 (09:00)
[2025-01-18 09:41] LABS: ABG PH 7.521 (7.35-7.45); ABG PO2 110.8 mmHg (80-100); BASE EXCESS 3.8 mmol/l; BICARBONATE 26.1 mmol/l (23-25); SaO2 98.9 %; Tco2 27.1 mmol/l
[2025-01-18 09:49] LABS: allen test SATISFACTORY; o2 21 %; puncture site RADIAL LEFT
[2025-01-18 09:50] LABS: ABG pCO2 32.7 mmHg (35-45)
[2025-01-18] MEDS ORDERED: POTASSIUM PHOS,M-BASIC-D-BASIC 15 MM in 0.9 % SODIUM CHLORIDE 250 ML IV NR (11:00)
[2025-01-18] MEDS ORDERED: GUAIFEN/DEXTROMETHORPHAN/PE 10 ML BLIST.PACK PO SCH (12:00)
[2025-01-18] MEDS ORDERED: CLONAZEPAM 1 MG TABLET PO ONE (14:45)
[2025-01-19] VITALS (8 sets, daily range): BP systolic 108–126; BP diastolic 72–77; O2SAT 90–97
[2025-01-19] MEDS ORDERED: FUROsemide 20 MG TABLET PO SCH (09:07)
[2025-01-19] MEDS ORDERED: CLONAZEPAM 1 MG TABLET PO SCH (19:00)
[2025-01-20 00:12] VITALS: O2SAT 95
[2025-01-20 02:25] VITALS: BP 124/72
[2025-01-20 08:08] VITALS: BP 123/77; O2SAT 95
[2025-01-20] MEDS ORDERED: TAMS0.4C PO (08:48)
[2025-01-20] MEDS ORDERED: LIPITOR20 MG PO (08:48)
[2025-01-20] MEDS ORDERED: LOSARTAN POTAS100 MG PO (08:49)
[2025-01-20] MEDS ORDERED: CARVEDILOL25 MG PO (08:50)
[2025-01-20] MEDS ORDERED: FENOFIBRATE160 MG PO (08:50)
[2025-01-20] MEDS ORDERED: AZITHROMYCIN 500 MG VIAL IV ONE (08:50)
[2025-01-20] MEDS ORDERED: ALDACTONE25 MG PO (08:51)
[2025-01-20] MEDS ORDERED: ST. JOSEPH ASPI81 M2 PO (08:52)
[2025-01-20] MEDS ORDERED: CYMBALTA30 MG PO (08:52)
[2025-01-20] MEDS ORDERED: CLONAZEPAM1 MG PO (08:52)
[2025-01-20] MEDS ORDERED: FUROSEMIDE20 MG PO (09:00)
[2025-01-20] MEDS ORDERED: CLOPIDOGREL BIS75 MG PO (09:01)
[2025-01-20 15:34] LABS: ABG PH 7.474 (7.35-7.45); ABG PO2 71.7 mmHg (80-100); ABG pCO2 35.8 mmHg (35-45); BASE EXCESS 2.4 mmol/l; BICARBONATE 25.7 mmol/l (23-25); SaO2 95.4 %; Tco2 26.8 mmol/l; o2 21 %
[2025-01-20 15:35] LABS: allen test SATISFACTORY; puncture site RADIAL RIGHT
== END 2025-01-20 09:40 | disposition home or self-care (01) | DRG 180 ==
LOC: ER 11:13 → MEDI 18:47 → ICU-2 18:47 → SEC-K 01-15 10:42 → MEDJ 01-15 15:50
PROVIDERS: Emergency Medicine; General Practice; Internal Medicine; ADMIT Internal Medicine; ATTEND Internal Medicine
PROC: BW24ZZZ Computerized Tomography (CT Scan) of Chest and Abdomen (ICD-10-PCS; principal; 2025-01-14)
PROC: BW28ZZZ Computerized Tomography (CT Scan) of Head (ICD-10-PCS; 2025-01-14)
PROC: 4A12X4Z Monitoring of Cardiac Electrical Activity, External Approach (ICD-10-PCS; 2025-01-15)
PROC: 8E0ZXY6 Isolation (ICD-10-PCS; 2025-01-15)
DX: C34.91 Malignant neoplasm of unspecified part of right bronchus or lung (principal); J96.01 Acute respiratory failure with hypoxia; I16.9 Hypertensive crisis, unspecified; C79.51 Secondary malignant neoplasm of bone; C78.02 Secondary malignant neoplasm of left lung; I31.39 Other pericardial effusion (noninflammatory); I25.10 Atherosclerotic heart disease of native coronary artery without angina pectoris; I11.0 Hypertensive heart disease with heart failure; D63.0 Anemia in neoplastic disease; E78.5 Hyperlipidemia, unspecified; I51.7 Cardiomegaly; I50.9 Heart failure, unspecified